=== PATIENT | female | born 2000 | race Caucasian/White ===

== ENCOUNTER 2023-07-04 16:56 | Emergency (ER) | payer OTHER | END 2023-07-04 17:56 | disposition home or self-care (01) | LOC: DL.ED 16:56 | DX: M54.2 Cervicalgia (principal); Z79.899 Other long term (current) drug therapy; Z90.49 Acquired absence of other specified parts of digestive tract; V47.5XXA Car driver injured in collision with fixed or stationary object in traffic accident, initial encounter; Y92.410 Unspecified street and highway as the place of occurrence of the external cause | CPT/HCPCS: 71045; 72040; 99283; 99284 ==

== ENCOUNTER 2024-02-07 08:59 | Emergency (ER) | payer BC, OTHER ==
[2024-02-07 09:29] LABS: APPEARANCE,URINE CLEAR (CLEAR); BILIRUBIN,URINE NEGATIVE (NEGATIVE); COLOR,URINE YELLOW (YELLOW); GLUCOSE,URINE NEGATIVE (NEGATIVE); KETONES,URINE NEGATIVE (NEGATIVE); LEUKOCYTE ESTERASE,URINE NEGATIVE (NEGATIVE); NITRITE,URINE NEGATIVE (NEGATIVE); OCCULT BLOOD,URINE NEGATIVE (NEGATIVE); PH,URINE 5.5 (5.0-9.0); PROTEIN,URINE NEGATIVE (NEGATIVE); UROBILINOGEN,URINE 0.2 mg/dL (0.2-1.0)
[2024-02-07] MEDS: Sodium Chloride 0.9% 1,000 ML IV ONE (10:17)
[2024-02-07] MEDS: Famotidine 20 MG/2 ML SDV IVPUSH ONE (10:20)
[2024-02-07 10:23] LABS: ALANINE AMINOTRANSFERASE,ALT 21 U/L (14-59); ALBUMIN 3.3 g/dL (3.4-5.0); ALKALINE PHOSPHATASE 104 U/L (46-116); ANION GAP 15.8 mEq/L (7-13); ASPARTATE AMNIOTRANSFERASE,AST 17 U/L (15-37); BILIRUBIN TOTAL 0.7 mg/dL (0.2-1.0); BLOOD UREA NITROGEN,BUN 16 mg/dL (7-18); BUN/CREATININE RATIO 20.5 (No establ ref range); CALCIUM 8.7 mg/dL (8.5-10.1); CARBON DIOXIDE,CO2 23 mmol/L (21-32); CHLORIDE,CL 105 mmol/L (98-107); CREATININE 0.78 mg/dL (0.55-1.02); EST CRCL DRUG DOSING (CG) 92.79 mL/min; GLUCOSE RANDOM 81 mg/dL (70-99); LIPASE 29 U/L (16-77); MAGNESIUM 1.9 mg/dL (1.8-2.4); POTASSIUM,K 4.8 mmol/L (3.5-5.1); PROTEIN TOTAL,TP 6.4 g/dL (6.4-8.2); SODIUM,NA 139 mmol/L (136-145)
[2024-02-07] MEDS: Promethazine 25 MG/ML SDV IM ONE (10:26)
[2024-02-07 10:28] LABS: BASOPHILS PERCENT AUTO 0.5 % (0.0-1.0); EOSINOPHILS PERCENT AUTO 1.1 % (1.0-3.0); HEMATOCRIT 40.8 % (37.0-47.0); HEMOGLOBIN 13.1 g/dL (12.0-16.0); LYMPHOCYTES PERCENT AUTO 22.9 % (20.5-50.1); MEAN CORPUSCULAR HEMOGLOBIN 25.3 pg (27.0-34.0); MEAN CORPUSCULAR HGB CONC 32.1 g/dL (33.0-35.0); MEAN CORPUSCULAR VOLUME 78.9 fL (80-100); MONOCYTES PERCENT AUTO 7.4 % (2-8); NEUTROPHILS PERCENT AUTO 68.1 % (42.2-75.2); PLATELET COUNT,PLT 387 10^3/uL (150-450); RED BLOOD CELL COUNT 5.17 10^6/uL (4.2-5.4); WHITE BLOOD CELL COUNT,WBC 8.3 10^3/uL (5.0-10.0)
[2024-02-07 10:36] LABS: HCG QUALITATIVE,SERUM NEGATIVE (NEGATIVE)
[2024-02-07 10:39] LABS: A/G RATIO 1.06; ESTIMATED GFR 109 mL/min (>=60)
[2024-02-07] MEDS: Iopamidol 612 MG/ML 100 ML Bottle IVPUSH ONE (10:52)
== END 2024-02-07 12:03 | disposition home or self-care (01) ==
LOC: DL.ED 08:59
DX: K29.00 Acute gastritis without bleeding (principal); F17.290 Nicotine dependence, other tobacco product, uncomplicated; Z91.018 Allergy to other foods; Z79.899 Other long term (current) drug therapy; Z90.49 Acquired absence of other specified parts of digestive tract
CPT/HCPCS: 36415; 74177; 80053; 81003; 83690; 83735; 84703; 85025; 93005; 96361; 96374; 99284; J3490; J7030; Q9967; 93010